=== PATIENT | male | born 1965 | race Caucasian/White ===

== ENCOUNTER 2017-08-09 17:33 | Emergency (ER) | payer OTHER ==
[~2017-08-09 17:33] MED LIST: FERROUS SULFATE27 MG PO; MULTIVITAMIN1 TAB PO; TRAMADOL50 MG PO; TYLENOL #4 3001 TAB PO; ULTRAM(MONOGRAP50 MG PO; [UNRECOGNIZED DRUG - OTHER] PO
[2017-08-09 18:56] VITALS: BP 118/80
[2017-08-09 19:25] LABS: ABSOLUTE BASOPHIL COUNT 0 /CUMM (0.0-0.2); ABSOLUTE EOSINOPHIL COUNT 0.1 /CUMM (0.0-0.7); ABSOLUTE GRANULOCYTE CT 6.1 /CUMM (1.4-6.5); ABSOLUTE LYMPH COUNT 0.6 /CUMM (1.2-3.4); ABSOLUTE MONOCYTE COUNT 0.5 /CUMM (0.10-0.60); BASOPHIL % 0.1 % (0.0-2.0); EOSINOPHIL % 0.7 % (0-5); GRANULOCYTE % 84.1 % (42.2-75.2); HEMATOCRIT 47.7 % (42-52); MEAN CORPUSCULAR HGB 27.9 PG (27.0-31.0); MEAN CORPUSCULAR HGB CONC 33.4 G/DL (33.0-37.0); MEAN CORPUSCULAR VOLUME 83.4 FL (80.0-94.0); MEAN PLATELET VOLUME 6.5 FL (7.4-10.4); PLATELET COUNT 497 /CUMM (130-400); RBC DISTRIBUTION WIDTH 13.7 % (11.5-14.5); RED BLOOD CELL CT 5.71 /CUMM (4.70-6.10); WHITE BLOOD CELL COUNT 7.3 /CUMM (4.8-10.8)
== END 2017-08-09 20:34 | disposition admitted as inpatient to this hospital (09) ==
LOC: ERH 17:33
PROVIDERS: Physician Assistant Medical
DX: K50.90 Crohn's disease, unspecified, without complications (principal)
CPT/HCPCS: 99281